=== PATIENT | female | born 1975 | race Caucasian/White ===

== ENCOUNTER 2016-10-02 00:20 | Emergency (ER) | payer SELFPAY ==
[2016-10-02 00:29] VITALS: BP 135/95; PULSE 67; TEMP 97; BMI 25.0
[2016-10-02 01:18] LABS: BASOPHIL 0.8 % (0-2.0); EOSINOPHIL 3.4 % (0-4.5); MEAN CELL VOLUME 87.9 fl (80-96); MEAN PLT VOLUME 9.2 fl (7.5-11.1); NEUTROPHILS 58.7 % (42.8-82.8); PLATELET COUNT 177 K/MM3 (134-434); RDW 12.8 % (11.6-15.6); WHITE BLOOD COUNT 7.4 K/mm3 (4.0-10.0)
--- NOTE | 2016-10-02 01:48 | PDOC ---
History of Present Illness - General Chief Complaint: Lightheaded Stated Complaint: DIZZINESS,WEAKNESS Time Seen by Provider: 10/02/16 00:37 History Source: Patient Exam Limitations: No Limitations - History of Present Illness Initial Comments: 10/02/16 01:43 41-year-old female with no medical history presents to the emergency department complaining of bright red blood per rectum on 1 bowel movement 12 hours ago. Patient describes the blood as being bright red and just a couple spots when she wiped herself. Patient denies either, chills, nausea/vomiting, dizziness, headaches, chest pain, shortness of breath, abdominal pains, flank pains, urinary symptoms: Frequency/urgency/hesitancy, hematuria, and upon urination. Timing/Duration: unsure Severity: mild Associated Symptoms: reports: denies symptoms Past History - Past Medical History Allergies/Adverse Reactions: Allergies Allergy/AdvReac Type Severity Reaction Status Date / Time No Known Allergies Allergy Verified 10/02/16 00:26 Home Medications: Ambulatory Orders No Home Medications 0 dose .ROUTE UTDICT 10/01/12 Other medical history: denies - Psycho/Social/Smoking Cessation Hx Anxiety: No Suicidal Ideation: No Smoking Status: No Smoking History: Never smoked Number of Cigarettes Smoked Daily: 0 Review of Systems - Review of Systems Able to Perform ROS?: Yes Comments:: 10/02/16 01:44 CONSTITUTIONAL: Absent: fever, chills, diaphoresis, generalized weakness, malaise, loss of appetite HEENT: Absent: rhinorrhea, nasal congestion, throat pain, throat swelling, difficulty swallowing, mouth swelling, ear pain, eye pain, visual Changes CARDIOVASCULAR: Absent: chest pain, loss of consciousness, palpitations, irregular heart rate, peripheral edema RESPIRATORY: Absent: cough, shortness of breath, dyspnea with exertion, orthopnea, wheezing, stridor, hemoptysis GASTROINTESTINAL: +BRBPR Absent: abdominal pain, abdominal distension, nausea, vomiting, diarrhea, constipation, melena, hematochezia GENITOURINARY: Absent: dysuria, frequency, urgency, hesitancy, hematuria, flank pain, genital pain MUSCULOSKELETAL: Absent: myalgia, arthralgia, joint swelling SKIN: Absent: rash, itching, pallor HEMATOLOGIC/IMMUNOLOGIC: Absent: easy bleeding, easy bruising, lymphadenopathy, frequent infections ENDOCRINE: Absent: unexplained weight gain, unexplained weight loss, heat intolerance, cold intolerance NEUROLOGIC: Absent: headache, focal weakness or paresthesias, dizziness, unsteady gait, seizure, mental status changes, bladder or bowel incontinence PSYCHIATRIC: Absent: anxiety, depression, suicidal or homicidal ideation, hallucinations. Is the patient limited Ukrainian proficient: No *Physical Exam - Vital Signs Last Vital Signs Temp Pulse Resp BP Pulse Ox 97 F L 67 18 135/95 97 10/02/16 00:22 10/02/16 00:22 10/02/16 00:22 10/02/16 00:22 10/02/16 00:22 - Physical Exam Comments: 10/02/16 01:44 GENERAL: Well developed, well nourished. Awake and alert. No acute distress. HEENT: Normocephalic, atraumatic. PERRLA, EOMI. No conjunctival pallor. Sclera are non- icteric. Moist mucous membranes. Oropharynx is clear. NECK: Supple. Full ROM. No JVD. Carotid pulses 2+ and symmetric, without bruits. No thyromegaly. No lymphadenopathy. CARDIOVASCULAR: Regular rate and rhythm. No murmurs, rubs, or gallops. Distal pulses are 2+ and symmetric. PULMONARY: No evidence of respiratory distress. Lungs clear to auscultation bilaterally. No wheezing, rales or rhonchi. ABDOMINAL: Grade 1 hemorrhoid appreciated during guiac exam Soft. Non-tender. Non-distended. No rebound or guarding. No organomegaly. Normoactive bowel sounds. MUSCULOSKELETAL Normal range of motion at all joints. No bony deformities or tenderness. No CVA tenderness. EXTREMITIES: No cyanosis. No clubbing. No edema. No calf tenderness. SKIN: Warm and dry. Normal capillary refill. No rashes. No jaundice. NEUROLOGICAL: Alert, awake, appropriate. Cranial nerves 2-12 intact. No deficits to light touch and temperature in face, upper extremities and lower extremities. No motor deficits in the in face, upper extremities and lower extremities. Normoreflexic in the upper and lower extremities. Normal speech. Toes are down- going bilaterally. Gait is normal without ataxia. PSYCHIATRIC: Cooperative. Good eye contact. Appropriate mood and affect. ED Treatment Course - LABORATORY CBC & Chemistry Diagram: 10/02/16 01:07 - ADDITIONAL ORDERS Additional order review: Laboratory Results 10/02/16 01:33 Stool Occult Blood Negative 10/02/16 01:07 RBC 4.68 MCV 87.9 MCHC 33.0 RDW 12.8 MPV 9.2 Neutrophils % 58.7 Lymphocytes % 30.5 Monocytes % 6.6 Eosinophils % 3.4 Basophils % 0.8 *DC/Admit/Observation/Transfer Diagnosis at time of Disposition: Acute hemorrhoid - Discharge Dispostion Admit: No - Referrals Referrals: Roni Cameron MD [Staff Physician] - - Patient Instructions Printed Discharge Instructions: DI for Hemorrhoids Additional Instructions: Soft diet Increase fluids No Motrin Follow up with Dr. Cameron Return to the ER for severe/persistent/worsening symptoms Print Language: SAMMARINESE
== END 2016-10-02 02:14 | disposition home or self-care (01) ==
LOC: JER 00:20
DX: K64.0 First degree hemorrhoids (principal)
CPT/HCPCS: 36415; 82272; 85025; 99282-25

== ENCOUNTER 2019-06-25 17:46 | Emergency (ER) | payer SELFPAY ==
[2019-06-25] MEDS ORDERED: SODIUM CHLORIDE 1,000 ML IV STA ×2 (18:02→21:42)
[2019-06-25] MEDS ORDERED: ONDANSETRON 4 MG/2 ML VIAL IVPUSH ONE (18:02)
[2019-06-25] MEDS ORDERED: ACETAMINOPHEN 1000 MG/100 ML VIAL (NON FORMULARY) IVPB ONE (18:02)
[2019-06-25 18:03] VITALS: BMI 25.9
--- NOTE | 2019-06-25 18:03 | PDOC ---
Rapid Medical Evaluation Time Seen by Provider: 06/25/19 17:58 Medical Evaluation: Allergies Allergy/AdvReac Type Severity Reaction Status Date / Time No Known Allergies Allergy Verified 10/02/16 00:26 06/25/19 17:58 Pt presents for n/v since last night. She states that this started last night. No sick contacts. States she feels like she has to go to have a bowel movement, but cant. Denies Fever. Exam: diffuse abdominal tenderness without focal findings, actively vomiting in triage Orders: Labs, IV, urine, meds Pt to proceed to the ER for further evaluation Discharge Disposition - Diagnosis Vomiting Qualifiers: Vomiting type: unspecified Vomiting Intractability: unspecified Nausea presence : unspecified Qualified Code(s): R11.10 - Vomiting, unspecified - Referrals - Patient Instructions - Post Discharge Activity
[2019-06-25 19:18] LABS: BASO % 0.2 % (0-2.0); HEMATOCRIT 45.5 % (32.4-45.2); HEMOGLOBIN 15.4 GM/dL (10.7-15.3); LYMPH % 5.3 % (8-40); MCH 29.6 pg (25.7-33.7); MCHC 33.8 g/dl (32.0-36.0); MEAN CELL VOLUME 87.6 fl (80-96); MEAN PLT VOLUME 9.7 fl (7.5-11.1); MONO % 3.2 % (3.8-10.2); NEUT % 91.3 % (42.8-82.8); PLATELET COUNT 191 K/MM3 (134-434); RDW 13.3 % (11.6-15.6); WHITE BLOOD COUNT 10.8 K/mm3 (4.0-10.0)
[2019-06-25 19:20] LABS: EPI CELLS 4.4 /HPF (0-5/HPF); HYALINE CASTS 3 /lpf (0-8); PH,URINE 5.5 (5.0-8.0); URINE APPEARANCE CLEAR; URINE BACTERIA 13.9 /hpf (NEGATIVE); URINE BILIRUBIN NEGATIVE (NEGATIVE); URINE COLOR YELLOW; URINE GLUCOSE (UA) NEGATIVE (NEGATIVE); URINE KETONE 1+ (NEGATIVE); URINE LEUK ESTERASE NEGATIVE (NEGATIVE); URINE NITRITE NEGATIVE (NEGATIVE); URINE PROTEIN NEGATIVE (NEGATIVE); URINE RBC 4 /hpf (0-4); URINE UROBILINOGEN 0.2 mg/dL (0.2-1.0); URINE WBC 1 /hpf (0-5)
--- NOTE | 2019-06-25 19:22 | PDOC ---
*Physical Exam - Vital Signs Last Vital Signs Temp Pulse Resp BP Pulse Ox 98.3 F 73 14 123/62 98 06/25/19 17:59 06/25/19 17:59 06/25/19 17:59 06/25/19 17:59 06/25/19 17:59 ED Treatment Course - LABORATORY CBC & Chemistry Diagram: 06/25/19 18:24 06/25/19 18:24 - ADDITIONAL ORDERS Additional order review: Laboratory Results 06/25/19 06/25/19 18:24 18:24 Urine Color Yellow Urine Appearance Clear Urine pH 5.5 Ur Specific [place] 1.026 Urine Protein Negative Urine Glucose (UA) Negative Urine Ketones 1+ H Urine Blood Trace Urine Nitrite Negative Urine Bilirubin Negative Urine Urobilinogen 0.2 Ur Leukocyte Esterase Negative Urine WBC (Auto) 1 Urine RBC (Auto) 4 Urine Casts (Auto) 3 U Epithel Cells (Auto) 4.4 Urine Bacteria (Auto) 13.9 Urine HCG, Qual Negative Medical Decision Making - Medical Decision Making 06/25/19 19:21 Patient seen by the advanced practice provider under my supervision. Ancillary testing reviewed as necessary. I agree with plan as outlined by the advanced practice provider. Discharge - Discharge Information Problems reviewed: Yes Clinical Impression/Diagnosis: Vomiting Qualifiers: Vomiting type: unspecified Vomiting Intractability: unspecified Nausea presence : unspecified Qualified Code(s): R11.10 - Vomiting, unspecified Abdominal pain Qualifiers: Abdominal location: generalized Qualified Code(s): R10.84 - Generalized abdominal pain - Follow up/Referral - Patient Discharge Instructions - Post Discharge Activity
[2019-06-25 19:39] LABS: ALBUMIN 4.2 g/dl (3.4-5.0); BILIRUBIN,TOTAL 1.1 mg/dL (0.2-1); BLOOD UREA NITROGEN 12.5 mg/dL (7-18); CREATININE 0.7 mg/dL (0.55-1.3); POTASSIUM 3.4 mmol/L (3.5-5.1); TOT PROT 7.8 g/dl (6.4-8.2)
--- NOTE | 2019-06-25 19:48 | PDOC ---
History of Present Illness - General Chief Complaint: Nausea/Vomiting Stated Complaint: VOMITING Time Seen by Provider: 06/25/19 17:58 History Source: Patient - History of Present Illness Initial Comments: 06/25/19 19:49 44 year old female nausea, vomiting and generalized abdominal pain since last night. denies constipation or diarrhea. denies sick contacts., NO pmhx Past History - Past Medical History Allergies/Adverse Reactions: Allergies Allergy/AdvReac Type Severity Reaction Status Date / Time No Known Allergies Allergy Verified 06/25/19 17:59 Home Medications: Ambulatory Orders No Home Medications 0 dose .ROUTE UTDICT 10/01/12 - Psycho Social/Smoking Cessation Hx Smoking Status: No Smoking History: Never smoked Number of Cigarettes Smoked Daily: 0 Hx Alcohol Use: No Drug/Substance Use Hx: No Review of Systems - Review of Systems Able to Perform ROS?: Yes Is the patient limited Uzbek proficient: No Constitutional: No: Symptoms Reported, See HPI, Chills, Diaphoresis, Fever, Loss of Appetite, Malaise, Night Sweats, Weakness, Weight Stable, Unintentional Wgt. Loss, Unexplained wgt Loss, Other ABD/GI: Yes: Nausea, Vomiting, Abdominal cramping. No: Symptoms Reported, See HPI, Abdominal Distended, Abd. Pain w/ defecation, Blood Streaked Bowels, Constipated, Diarrhea, Difficulty Swallowing, Poor Appetite, Poor Fluid Intake, Rectal Bleeding, Indigestion, Tarry Stools, Other : No: Symptoms Reported, See HPI, Burning, Dysuria, Discharge, Frequency, Flank Pain, Hematuria, Incontinence, Pain, Urgency, Testicular Mass, Testicular Swelling, Lesions, Testicular Pain, Other *Physical Exam - Vital Signs Last Vital Signs Temp Pulse Resp BP Pulse Ox 98.3 F 73 14 123/62 98 06/25/19 17:59 06/25/19 17:59 06/25/19 17:59 06/25/19 17:59 06/25/19 17:59 - Physical Exam General Appearance: Yes: Appropriately Dressed Respiratory/Chest: positive: Lungs Clear, Normal Breath Sounds Cardiovascular: positive: Regular Rhythm, Regular Rate Gastrointestinal/Abdominal: positive: Normal Bowel Sounds, Tender (generalixzed) , Soft Extremity: positive: Normal Capillary Refill, Normal Inspection Integumentary: positive: Normal Color, Dry, Warm Neurologic: positive: Fully Oriented, Alert ED Treatment Course - LABORATORY CBC & Chemistry Diagram: 06/25/19 18:24 06/25/19 18:24 - ADDITIONAL ORDERS Additional order review: Laboratory Results 06/25/19 06/25/19 06/25/19 18:24 18:24 18:24 Sodium 140 Potassium 3.4 L Chloride 107 Carbon Dioxide 23 Anion Gap 9 BUN 12.5 Creatinine 0.7 Est GFR (CKD-EPI)AfAm 121.27 Est GFR (CKD-EPI)NonAf 104.64 Random Glucose 139 H Calcium 9.0 Total Bilirubin 1.1 H AST 69 H ALT 91 H Alkaline Phosphatase 153 H Total Protein 7.8 Albumin 4.2 Lipase 76 Urine Color Yellow Urine Appearance Clear Urine pH 5.5 Ur Specific [place] 1.026 Urine Protein Negative Urine Glucose (UA) Negative Urine Ketones 1+ H Urine Blood Trace Urine Nitrite Negative Urine Bilirubin Negative Urine Urobilinogen 0.2 Ur Leukocyte Esterase Negative Urine WBC (Auto) 1 Urine RBC (Auto) 4 Urine Casts (Auto) 3 U Epithel Cells (Auto) 4.4 Urine Bacteria (Auto) 13.9 Urine HCG, Qual Negative 06/25/19 18:24 RBC 5.20 MCV 87.6 MCHC 33.8 RDW 13.3 D MPV 9.7 Neutrophils % 91.3 H D Lymphocytes % 5.3 L D Monocytes % 3.2 L Eosinophils % 0.0 D Basophils % 0.2 ED Progress Note - Progress Note Progress Note: 06/25/19 19:54 A: nausea, vomiting, P: labs IVF 06/25/19 21:41 patient overall reports feeling better. has abdominal pain now with RLQ pain worse than other quadrant. Medical Decision Making - Medical Decision Making 06/25/19 23:22 developed a few hives to face after CT. no respiratory symptoms, no oral swelling will give Benadryl 06/26/19 01:04 CTAP; Appendix is not definitely visualized however no indirect CT signs of acute appendicitis are noted. Evaluation is mildly limited due to respiratory motion artifact. No gross small bowel pathology is seen. There is no gross acute colitis. At 3 x 2 cm involuting right ovarian cyst is seen. Possible subtle trace amount of amrita-cholecystic fluid is seen along the fundus. No radiopaque biliary calculus is visualized. No biliary tract dilatation. Abdominal US: The liver measures 13.3 cm in length and is normal in echogenicity. Hepatopetal flow is noted in the main portal vein. CBD measures 2.3 mm. The gallbladder does not demonstrate any calculi. There is sludge suggested in the dependent aspect. No gallbladder wall thickening is seen. Although tech notes report trace pericholecystic fluid no images demonstrating this finding were provided. Negative Garcia's sign was reported. TVUS: Anteverted uterus measuring 5.6 x 2.1 x 3.3 cm with endometrial thickness of 2.9 mm. No uterine masses. Complex nabothian cyst in the cervix. No free fluid in the cul-de-sac. Left ovary surgically absent. Right ovary measuring 2 x 0.8 x 2.4 cm. Color Doppler demonstrated in the right ovary and adnexa. Arterial and venous pulsed- wave Doppler demonstrated in the right ovary. 06/26/19 01:06 patient has no pain now. will PO trial. bandemia likely related to vomiting patient is nontoxic appearing. strict return precautions reviewed with patient. patient verbalized understanding. all results discussed with patient 06/26/19 02:39 Discharge - Discharge Information Problems reviewed: Yes Clinical Impression/Diagnosis: Vomiting Qualifiers: Vomiting type: unspecified Vomiting Intractability: unspecified Nausea presence : unspecified Qualified Code(s): R11.10 - Vomiting, unspecified Abdominal pain Qualifiers: Abdominal location: generalized Qualified Code(s): R10.84 - Generalized abdominal pain Condition: Stable Disposition: HOME - Follow up/Referral - Patient Discharge Instructions Patient Printed Discharge Instructions: DI for Vomiting -- Adult Additional Instructions: drink plenty of fluids start a BRAT ( bananas, rice apples toast) follow up with your doctor as soon as possible return to the ER if symptoms worsen - Post Discharge Activity Work/Back to School Note: Back to Work
[2019-06-25] MEDS ORDERED: ONDANSETRON 4 MG/2 ML VIAL ONE (19:52)
[2019-06-25 22:02] LABS: PLATELET ESTIMATE ADEQUATE
[2019-06-26 02:24] VITALS: BP 90/50; PULSE 56; TEMP 97.4
== END 2019-06-26 02:15 | disposition home or self-care (01) ==
LOC: JER 17:46
PROC: 3E0337Z Introduction of Electrolytic and Water Balance Substance into Peripheral Vein, Percutaneous Approach (ICD-10-PCS; principal; 2019-06-25)
PROC: 3E033GC Introduction of Other Therapeutic Substance into Peripheral Vein, Percutaneous Approach (ICD-10-PCS; 2019-06-25)
PROC: 3E033GC Introduction of Other Therapeutic Substance into Peripheral Vein, Percutaneous Approach (ICD-10-PCS; 2019-06-25)
PROC: 3E033NZ Introduction of Analgesics, Hypnotics, Sedatives into Peripheral Vein, Percutaneous Approach (ICD-10-PCS; 2019-06-25)
DX: R10.84 Generalized abdominal pain (principal); R11.2 Nausea with vomiting, unspecified; N88.8 Other specified noninflammatory disorders of cervix uteri; N83.201 Unspecified ovarian cyst, right side
CPT/HCPCS: 36415; 74177-TC; 76705-TC; 76830-TC; 80053; 81003; 83690; 84703; 85025; 87086; 99285-25; J0131; J7030; Q9967

== ENCOUNTER 2020-09-24 17:33 | Emergency (ER) | payer OTHER ==
[2020-09-24 17:38] VITALS: BP 146/82; PULSE 72; BMI 26.7
[2020-09-24] MEDS ORDERED: FLUORESCEIN NA 1 EA STRIP ONE (17:57)
[2020-09-24] MEDS ORDERED: TETRACAINE 0.5% OPHTH SOLN 2 ML BOTTLE ONE (17:57)
[2020-09-24] MEDS ORDERED: TETRACAINE 0.5% OPHTH SOLN 2 ML BOTTLE OD ONE (18:15)
[2020-09-24] MEDS ORDERED: FLUORESCEIN NA 1 EA STRIP OD ONE (18:15)
[2020-09-24] MEDS ORDERED: ERYTHROMYCIN 0.5% OPHTHALMIC OINTMENT 3.5 GM TUBE OD ONE (18:15)
[2020-09-24] MEDS ORDERED: ERYTHROMYCIN 0.5% OPHTHALMIC OINTMENT 3.5 GM TUBE ONE (18:18)
== END 2020-09-24 18:22 | disposition home or self-care (01) ==
LOC: JERFT 17:33
DX: T15.91XA Foreign body on external eye, part unspecified, right eye, initial encounter (principal)
CPT/HCPCS: 99284-25

== ENCOUNTER → 2021-02-03 | Day surgery (SDC) | payer OTHER | END | disposition home or self-care (01) | LOC: FMAMMOTONE 01-20 10:57 → EDSTATUS 01-20 11:30 → FRAD 10:24 → FMAMMOTONE 10:24 | PROVIDERS: ATTEND Surgery | PROC: 0HBU3ZX Excision of Left Breast, Percutaneous Approach, Diagnostic (ICD-10-PCS; principal; 2021-02-03) | DX: Z53.8 Procedure and treatment not carried out for other reasons (principal); R92.8 Other abnormal and inconclusive findings on diagnostic imaging of breast | CPT/HCPCS: 19081 ==

== ENCOUNTER → 2021-02-17 | Day surgery (SDC) | payer OTHER | END | disposition home or self-care (01) | LOC: JRADUS-SUR 11:51 | PROVIDERS: ATTEND Surgery | PROC: 0H9U3ZX Drainage of Left Breast, Percutaneous Approach, Diagnostic (ICD-10-PCS; principal; 2021-02-17) | DX: D24.2 Benign neoplasm of left breast (principal) | CPT/HCPCS: 19083; 76942-TC; 77065-TC; 87899; 88305-TC; 88312-TC; A4648 ==

== ENCOUNTER 2022-05-05 13:31 | Emergency (ER) | payer OTHER ==
[2022-05-05 13:58] VITALS: BP 124/60; PULSE 75; RESP 19; TEMP 99.1; BMI 25.2
[2022-05-05] MEDS ORDERED: KETOROLAC TROMETHAMINE 30 MG/1 ML VIAL IM ONE (15:20)
[2022-05-05] MEDS ORDERED: LIDOCAINE 5% TOPICAL PATCH TP ONE (15:20)
[2022-05-05 15:21] LABS: PH,URINE 8.5 (5.0-8.0); URINE APPEARANCE TURBID; URINE BILIRUBIN NEGATIVE (NEGATIVE); URINE COLOR YELLOW; URINE GLUCOSE (UA) NEGATIVE (NEGATIVE); URINE KETONE NEGATIVE (NEGATIVE); URINE LEUK ESTERASE NEGATIVE (NEGATIVE); URINE NITRITE NEGATIVE (NEGATIVE); URINE PROTEIN NEGATIVE (NEGATIVE)
[2022-05-05] MEDS ORDERED: METHOCARBAMOL 500 MG TABLET PO ONE (15:21)
[2022-05-05 15:24] LABS: HCG,QUALITATIVE URINE Negative
[2022-05-05] MEDS ORDERED: KETOROLAC TROMETHAMINE 30 MG/1 ML VIAL ONE (15:25)
[2022-05-05] MEDS ORDERED: METHOCARBAMOL 500 MG TABLET ONE (15:25)
[2022-05-05] MEDS ORDERED: LIDOCAINE 5% TOPICAL PATCH ONE (15:25)
== END 2022-05-05 15:45 | disposition home or self-care (01) ==
LOC: JERFT 13:31
PROC: 3E023GC Introduction of Other Therapeutic Substance into Muscle, Percutaneous Approach (ICD-10-PCS; principal; 2022-05-05)
DX: M54.50 Low back pain, unspecified (principal)
CPT/HCPCS: 81003; 84703; 87086; 99284-25

== ENCOUNTER 2022-06-24 04:30 | Day surgery (SDC) | payer OTHER ==
[2022-06-23 11:40] VITALS: BMI 25.8
[2022-06-24] MEDS ORDERED: MIDAZOLAM HCL 2 MG/2 ML SINGLE DOSE VIAL ONE (10:55)
[2022-06-24] MEDS ORDERED: PROPOFOL 20 ML ONE (10:55)
[2022-06-24 13:07] VITALS: TEMP 97.2
[2022-06-24] MEDS ORDERED: ONDANSETRON 4 MG/2 ML VIAL IVPUSH PRN (14:24)
[2022-06-24] MEDS ORDERED: oxyCODONE HCL 5 MG TABLET PO PRN ×2 (14:24)
[2022-06-24] MEDS ORDERED: PROMETHAZINE HCL 25 MG/1 ML VIAL IVPB PRN (14:24)
[2022-06-24] MEDS ORDERED: LACTATED RINGERS SOLUTION 1,000 ML IV SCH (14:30)
[2022-06-24 15:06] VITALS: RESP 20
[2022-06-24 15:08] VITALS: BP 105/71; PULSE 62
== END 2022-06-24 14:00 | disposition home or self-care (01) ==
LOC: JASU-SURG 04:30
PROVIDERS: ATTEND Surgery
PROC: 0JBM0ZZ Excision of Left Upper Leg Subcutaneous Tissue and Fascia, Open Approach (ICD-10-PCS; 2022-06-24)
PROC: 0JBL0ZZ Excision of Right Upper Leg Subcutaneous Tissue and Fascia, Open Approach (ICD-10-PCS; 2022-06-24)
PROC: 0JB70ZZ Excision of Back Subcutaneous Tissue and Fascia, Open Approach (ICD-10-PCS; principal; 2022-06-24 10:45)
DX: D21.21 Benign neoplasm of connective and other soft tissue of right lower limb, including hip (principal); D21.6 Benign neoplasm of connective and other soft tissue of trunk, unspecified; D21.22 Benign neoplasm of connective and other soft tissue of left lower limb, including hip
CPT/HCPCS: 81025; 88304-TC; 94760